=== PATIENT | female | born 1975 | race Caucasian/White ===

== ENCOUNTER 2020-12-18 14:44 | Emergency (ER) | payer OTHER, SELFPAY ==
--- NOTE | ~2020-12-18 | XR_ITS ---
EXAMINATION: XR hand LT min 3V INDICATION: Left hand pain, initial encounter TECHNIQUE: Three views of the left hand are obtained. COMPARISON: None available FINDINGS: There is an acute, traumatic, closed, comminuted fracture in the proximal aspect of the fif th proximal phalanx. Soft tissue swelling surrounds the fracture. The joint spaces are normal. No add itional acute osseous findings are evident. IMPRESSION: 1. Comminuted fracture in the proximal aspect of the fifth proximal phalanx. Reviewed, dictated and finalized at location A.
[2020-12-18 15:01] VITALS: BP 118/87; PULSE 89; RESP 16; TEMP 37; O2SAT 100
--- NOTE | 2020-12-18 15:30 | ED.GENADULT ---
HPI - General Adult General Chief complaint: Extremity Injury, Upper Stated complaint: lt hand pinkie finger injury Source: patient Mode of arrival: ambulatory Limitations: no limitations History of Present Illness HPI narrative: Mrs. Giron is a pleasant 45 y/o female. Presents to [facility] today with acute complaints of Left pinky finger pain S/P accident while playing in her yard with her son. Client states to have been playing Football with her son, went to catch the football, and hyperextended her left pinky finger. She notes sharp and throbbing pain. Incident had occurred immediately [employer]. No loss of upper extremity sensation or control. No additional acute injury has been identified. Related Data Home Medications Medication Instructions Recorded Confirmed norgestrel-ethinyl estradiol 1 tablet PO DAILY 12/18/20 12/18/20 [Tammi (28)] Allergies Allergy/AdvReac Type Severity Reaction Status Date / Time amphetamine Allergy Unknown Nausea Verified 12/18/20 15:04 Review of Systems Review of Systems: CONSTITUTIONAL: Denies fever, chills, sweats. EYES: Denies visual changes, redness, discharge. ENT: Denies rhinorrhea, congestion, sore throat, otalgia. CARDIOVASCULAR: Denies chest pain, palpitations, edema. RESPIRATORY: Denies dyspnea, wheezing, cough GASTROINTESTINAL: Denies abdominal pain, nausea, vomiting, diarrhea. GENITOURINARY: Denies dysuria, hematuria, abnormal discharge SKIN: Denies rash or itching. MUSCULOSKELETAL: LT pinky pain, injury. NEUROLOGIC: Denies numbness, or focal weakness. PSYCHIATRIC: Denies anxiety or depression. All systems reviewed & are unremarkable except as noted in HPI and below PMFSH Social History Social History Alcohol intake: current Exam Narrative: GENERAL: This is a well-nourished, well-developed adult, in no apparent distress. HEAD: normocephalic, atraumatic. EYES: PERRL. Sclera clear/white. EARS: External ears normal, auditory canals clear and without drainage, TMs normal. NOSE: External nose normal. Positive Rhinorrhea, no obstruction, nares patent. THROAT: Mucous membranes moist, posterior pharynx clear. No exudates. NECK: Neck supple, non-tender without lymphadenopathy, masses or thyromegaly. CARDIOVASCULAR: Regular rate and rhythm without murmurs, gallops, or rubs. Normal pulses LUE. RESPIRATORY: Clear to auscultation. Breath sounds equal bilaterally. No wheezes, rales, or rhonchi. GASTROINTESTINAL: Abdomen soft, non-tender, nondistended. Bowel sounds are active. No guarding. SKIN: warm, intact with no suspicious lesions or rash, good texture and turgor. NEURO: Good sensation and discrimination LUE. No focal neurologic deficits. MUSCULOSKELETAL: With Left pinky finger point tenderness and ecchymosis overlying LT proximal MCP joint LT pinky finger. No obvious deformity to site. ROM limited with pain. Course Course Emergency Course: -45 y/o female. -LT pinky finger accident, pain. -Proceed with Radiology imaging. Vital Signs Vital signs: Vital Signs Temperature 37.0 C 12/18/20 15:01 Pulse Rate 89 12/18/20 15:01 Respiratory Rate 16 12/18/20 15:01 Blood Pressure 118/87 12/18/20 15:01 Pulse Oximetry 100 12/18/20 15:01 Temperature 37.0 C 12/18/20 15:01 Pulse Rate 89 12/18/20 15:01 Respiratory Rate 16 12/18/20 15:01 Blood Pressure 118/87 12/18/20 15:01 Pulse Oximetry 100 12/18/20 15:01 Medical Decision Making [facility] Narrative Medical decision making narrative: -Plain film radiology imaging reveals comminuted fracture in the proximal aspect of the left fifth proximal phalanx. -No neurovascular deficits are appreciated on exam. -Long finger splint for stabilization and healing. -She has been referred to [facility]-call, for close specialty follow-up and continuity of care. -Will give short course of [place] for mod
== END 2020-12-18 15:37 | disposition home or self-care (01) ==
PROVIDERS: Emergency Provider Nurse Practitioner Adult Health; PCP Family Medicine
DX: S62.647A Nondisplaced fracture of proximal phalanx of left little finger, initial encounter for closed fracture (principal); W21.01XA Struck by football, initial encounter
CPT/HCPCS: 73130; 99213; G0463

== ENCOUNTER 2022-08-06 08:10 | Emergency (ER) | payer OTHER, SELFPAY ==
--- NOTE | 2022-08-06 08:13 | ED.URI ---
HPI - URI/Sore Throat General Chief Complaint: Upper Respiratory Infection Stated Complaint: cough, sore throat, fever Source: patient and RN notes reviewed History of Present Illness HPI Narrative: 46-year-old female presents to urgent care with complaints of a sore throat times a couple days. Patient states her her pain worsened last night. Patient reports a small amount diarrhea as well as some congestion. Patient thinks she had a fever last night as well. Denies any vomiting, ear pain, or other complaints. Patient's son and both had strep throat this past week. Patient did have amoxicillin called in for her by someone else last night the patient did not take antibiotics if not needed, hence, her reason for coming in today. Some parts of this dictation were generated by voice recognition software and may contain typographical and/or grammatical inaccuracies. Related Data Home Medications Medication Instructions Recorded Confirmed norgestrel 0.3 mg-ethinyl 1 tablet PO DAILY 12/18/20 04/26/21 estradiol 30 mcg tablet (Tammi (28)) Allergies Allergy/AdvReac Type Severity Reaction Status Date / Time No Known Allergies Allergy Unverified 08/06/22 08:26 Review of Systems Review of Systems: CONSTITUTIONAL: Subjective fever last night. EYES: Denies visual changes, redness, or discharge. ENT: sore throat CARDIOVASCULAR: Denies chest pain, palpitations, or edema. RESPIRATORY: Denies cough or dyspnea. GASTROINTESTINAL: diarrhea. GENITOURINARY: Denies dysuria or hematuria. SKIN: Denies rash or itching. MUSCULOSKELETAL: Denies back pain, joint pain, or myalgia. NEUROLOGIC: Denies headache, numbness, or weakness. Pertinent positives per HPI. [facility] Past Medical History Medical History Trochanteric bursitis, left hip Surgical History Surgical History History of abdominoplasty History of breast augmentation History of D&C Social History Social History (Updated 05/01/22 @ 10:06 by Dima Barcenas MA) Smoking status: Never smoker Alcohol intake: current Drinks per week: 10 Substance use: never Substance use type: does not use Lack of Transportation: No Lack of Food: Never True Current Housing: I Have Housing Concerned About Future Housing: No Difficulty Paying Gas/Electric Bills: No Difficulty Paying for Meds: No Currently Unemployed: No Education: Master's Degree or Higher Difficulty w/ Childcare or Family Care: No Gender identity (if verbalized by the patient): Female Comments At the time of my signature, I reviewed and agree with the nursing past medical, surgical, social, and family history. There is no relevant family history pertinent to the patient complaint. Exam Narrative: GENERAL: This is a well-nourished, well-developed patient, in no apparent distress. HEAD: normocephalic, atraumatic. EYES: PERRL. Sclera clear/white. Vision is grossly intact. EARS: External ears normal, auditory canals clear and without drainage, TMs normal without perforation. Hearing grossly intact. NOSE: External nose normal with no obvious nasal discharge, nares without redness, no rhinorrhea. THROAT: Mucous membranes moist, posterior pharynx erythemic. NECK: Neck supple, non-tender without lymphadenopathy, masses or thyromegaly. CARDIOVASCULAR: Regular rate and rhythm without murmurs, gallops, or rubs. RESPIRATORY: Clear to auscultation. Breath sounds equal bilaterally. No wheezes, rales, or rhonchi. GASTROINTESTINAL: Abdomen soft, non-tender, nondistended. Bowel sounds are active. No hepato-splenomegaly, or palpable masses. No guarding. SKIN: warm, intact with no suspicious lesions or rash, good texture and turgor. NEURO: awake, alert, and oriented to person, place and time. There were no obvious focal neurologic abnormalities. Course Course Level o
[2022-08-06 08:27] VITALS: BP 133/88; PULSE 93; RESP 16; TEMP 37.2; O2SAT 99
[2022-08-06 08:31] VITALS: BP 133/88; PULSE 93; RESP 16; TEMP 37.2; O2SAT 99
== END 2022-08-06 08:43 | disposition home or self-care (01) ==
PROVIDERS: Emergency Provider Nurse Practitioner Family; PCP Family Medicine
DX: J02.9 Acute pharyngitis, unspecified (principal)
CPT/HCPCS: 87081; 87880; 99213; G0463

== ENCOUNTER 2022-11-14 08:06 | Outpatient (CLI) | payer OTHER, SELFPAY ==
[2022-11-14 19:45] LABS: Basophils Percent Auto 0.7 % (0.2-1.2); Eosinophils Percent Auto 0.5 % (0-4.4); Hematocrit 39.6 % (37.0-47.0); Hemoglobin 13.7 g/dL (12.0-15.0); Immature Granulocyte Absolute 0.01 K/mm3 (0.00-0.031); Immature Granulocyte Percent A 0.2 % (0-0.5); Lymphocytes Absolute Auto 1.89 K/mm3 (0.9-3.2); Lymphocytes Percent Auto 32.9 % (18.3-44.2); Mean Corpuscular HGB Conc 34.6 g/dl (32-36); Mean Corpuscular Volume 95.4 fl (80-100); Mean Platelet Volume 9.3 fl (7.4-10.4); Monocytes Absolute Auto 0.5 K/mm3 (0.1-0.6); Monocytes Percent Auto 9.4 % (2.6-8.5); Neutrophils Absolute Auto 3.2 K/mm3 (1.3-6.7); Neutrophils Percent Auto 56.3 % (45.5-73.1); Platelet Count Result 324 k/mm3 (150-375); Red Blood Count 4.15 M/mm3 (4.2-5.4); Red Cell Distribution Width 12.1 % (11.5-14.5); White Blood Count 5.7 K/mm3 (4.5-10.0)
[2022-11-14 20:46] LABS: LDL Cholesterol Direct 67 mg/dL
[2022-11-14 20:49] LABS: Anion Gap 5 mmol/L (8-16); Blood Urea Nitrogen 7 mg/dL (7-17); Calcium 9.5 mg/dL (8.4-10.2); Carbon Dioxide 26 mmol/L (22-30); Chloride 101 mmol/L (98-107); Cholesterol 210 mg/dL (0-200); Estimated Glomerular Filt Rate > 60; Glucose 75 mg/dL (65-110); Potassium 4.3 mmol/L (3.4-5.0); Sodium 132 mmol/L (137-145); Triglycerides 106 mg/dL (<150)
[2022-11-14 21:07] LABS: HDL Direct 130 mg/dL
== END 2022-11-14 08:07 | disposition home or self-care (01) ==
LOC: ANHGOSHLAB 08:07
PROVIDERS: PCP Family Medicine; Visit Provider Nurse Practitioner Family
DX: F51.04 Psychophysiologic insomnia (principal); F43.20 Adjustment disorder, unspecified
CPT/HCPCS: 36415; 80048; 80061; 84443; 85025